=== PATIENT | male | born 1985 | race Caucasian/White ===

== ENCOUNTER 2020-06-18 15:21 | Emergency (ER) | payer BC ==
[~2020-06-18] VITALS: Ht 180.3 cm; Wt 90.9 kg
[~2020-06-18 15:21] MED LIST: LEXAPRO5 MG PO; LISINOPRIL10 MG; METOPROLOL SUCC25 M1 PO; PREVACID15 M1
[2020-06-18] MEDS ORDERED: LISINOPRIL20 MG PO (16:20)
[2020-06-18 16:33] LABS: HEMATOCRIT 48.5 % (42.0-52.0); HEMOGLOBIN 17.1 g/dL (13.5-18.0); MEAN CELL VOLUME 89 fl (78-100); MEAN CORPUSCULAR HEMOGLOBIN 31 pg (27-31); MEAN CORPUSCULAR HGB CONC 35 g/dL (33-37); MEAN PLATELET VOLUME 8.7 fl (7.4-10.4); PLATELET COUNT 275 K/mm3 (130-400); RED BLOOD COUNT 5.46 M/mm3 (4.20-5.60); RED CELL DISTRIBUTION WIDTH 12.4 % (11.5-14.5); WHITE BLOOD COUNT 13.5 K/mm3 (4.8-10.8)
[2020-06-18 16:41] LABS: LYMPHOCYTE 6 % (20-51); MONOCYTE 6 % (3-10); NEUTROPHILS 88 % (42-75)
[2020-06-18 16:45] LABS: ALBUMIN 4.7 g/dL (3.5-5.0); POTASSIUM 4.6 mmol/L (3.5-5.1)
[2020-06-18 16:46] LABS: CALCIUM 9.6 mg/dL (8.3-10.5)
[2020-06-18 16:47] LABS: TOTAL PROTEIN 7.7 g/dL (6.4-8.3)
[2020-06-18 16:49] LABS: TOTAL BILIRUBIN 0.9 mg/dL (0.2-1.2)
[2020-06-18 18:42] VITALS: BP 125/66
== END 2020-06-18 18:41 | disposition home or self-care (01) ==
LOC: ED 15:21
PROVIDERS: Nurse Practitioner Family
DX: T62.91XA Toxic effect of unspecified noxious substance eaten as food, accidental (unintentional), initial encounter (principal); E86.0 Dehydration; I10 Essential (primary) hypertension; F32.9 Major depressive disorder, single episode, unspecified; K21.9 Gastro-esophageal reflux disease without esophagitis; Z88.0 Allergy status to penicillin; Z88.2 Allergy status to sulfonamides
CPT/HCPCS: J2405; J7030; Q9967

== ENCOUNTER → 2020-10-21 | Outpatient (CLI) | payer BC ==
[~2020-10-21] MED LIST changes: +LISINOPRIL20 MG PO
== END ==
LOC: CARDREHAB 16:24
DX: G47.19 Other hypersomnia (principal); G47.8 Other sleep disorders; I10 Essential (primary) hypertension; E66.3 Overweight
CPT/HCPCS: G0399